=== PATIENT | male | born 2000 | race Caucasian/White ===

== ENCOUNTER 2022-12-28 12:06 | Emergency (ER) | payer OTHER, SELFPAY ==
[2022-12-28 12:07] VITALS: BP 127/85; PULSE 82; RESP 16; TEMP 36.8; O2SAT 100; BMI 27.8
--- NOTE | 2022-12-28 13:28 | EDS_ITS ---
HPI <ERIN Doherty - Last Filed: 12/28/22 15:27> History of Present Illness Chief Complaint: Meds Only Narrative Narrative: Patient presenting today after being bit by a raccoon on his right anterior lower leg on Saturday. 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 He tried to step on its head but missed and the raccoon bit his leg. This has never happened before. He went to urgent care on and they updated his tetanus vaccine and told him to follow-up with the health department. When he went to the health department today they encouraged him to come to the emergency department for treatment. He denies any fever, chills, signs of infection near the bite. Patient has never been bit by a raccoon before or received any treatment for rabies prevention. [facility] <ERIN Doherty - Last Filed: 12/28/22 15:27> [facility] Medical History (Updated 12/28/22 @ 14:28 by ERIN Doherty) Bitten by raccoon, initial encounter Home Medications amoxicillin 500 mg-potassium clavulanate 125 mg tablet 1 tab PO BID #10 tabs 12/27/22 [Rx Last Taken Unknown] Allergy/AdvReac Type Severity Reaction Status Date / Time No Known Allergies Allergy Verified 12/28/22 12:09 Social History Smoking Status: Never smoker alcohol intake: never ROS <ERIN Doherty - Last Filed: 12/28/22 15:27> ROS ED Constitutional Constitutional ED: Denies chills or fever(s) Eyes Eyes: Denies change in vision Cardiovascular Cardiovascular: Denies chest pain Respiratory/Chest Respiratory/Chest: Denies cough or dyspnea Gastrointestinal Gastrointestinal: Denies abdominal pain, nausea or vomiting Musculoskeletal Musculoskeletal: Denies arthralgias or myalgias Integumentary Denies abscess, Abrasions or rash Neurologic Neurologic: Denies paresthesias or weakness EXAM <ERIN Doherty - Last Filed: 12/28/22 15:27> Physical Exam Const Vital Signs: 12/28/22 12:07 Temperature 98.2 F Temperature Source Temporal Pulse Rate 82 Respiratory Rate 16 Blood Pressure 127/85 H Blood Pressure Mean 99 Pulse Ox 100 Oxygen Delivery Method Room Air Positive well nourished, well developed and no apparent distress General Appearance ED: well developed HEENT Reports normocephalic and head/scalp atraumatic Mouth ED: Yes moist mucous membranes normal Eyes PERRL and EOMs intact bilaterally Neck full ROM and supple Chest Wall inspection of chest normal Resp normal respiratory effort and clear to auscultation bilaterally Cardio regular rate and regular rhythm GI soft to palpation, non-tender, non-distended and no masses Back/Spine normal ROM and normal to inspection Extremity normal to inspection and full ROM Extremity Narrative: 1 cm linear wound that has scabbed over to the ventral aspect of patient's right lower leg. There is no surrounding erythema, edema, or purulent discharge. Neuro oriented x3, CN's II-XII intact bilaterally, moves all extremities, no focal motor deficits and no sensory deficits noted Sensorium / Orientation: awake and alert Psych mental status grossly normal and thought process normal Skin Skin Narrative: See above. <Dr. Jeni Rosa, - Last Filed: 12/28/22 17:39> Physical Exam Const Vital Signs: 12/28/22 12:07 Temperature 98.2 F Temperature Source Temporal Pulse Rate 82 Respiratory Rate 16 Blood Pressure 127/85 H Blood Pressure Mean 99 Pulse Ox 100 Oxygen Delivery Method Room Air MDM <ERIN Doherty - Last Filed: 12/28/22 15:27> [facility] Narrative Medical decision making narrative: Patient presenting today after being bit by a raccoon on his right lower extremity Saturday. He is well-appearing and in no acute distress. Vital signs are stable and he is afebrile. He has a small linear wound that is about 1 cm to his right lower leg that has scabbed over and is not actively bleeding. There is no surrounding cellulitis. Patient has been given 1800 units of rabies immunoglobulin. I cleansed the wound with an alcohol wipe and injected 2 cc of this around/ into the bite wound and the nurse injected the rest into patient's arm. Patient was also given the rabies vaccine. His tetanus is up-to-date. He has been given a schedule to return to have the series completed. He will be discharged home in stable condition and is comfortable with plan. <Dr. Jeni Rosa, DO - Last Filed: 12/28/22 17:39> [facility] Treatment and Re-Evaluation :: I have personally performed a face to face assessment of the patient and have reviewed the JAGDISH Note. I performed a substantive portion of the visit including all aspects of the following. My baker findings include: History is patient is 22-year-old male with no significant past medical history, up-to-date on tetanus presenting for rabies prophylaxis after raccoon bite to his right serrano. This occurred 2 days ago. 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 He was chasing through a field when he stepped on the back of it and the raccoon turned around and bit him on the shoe and did managed by him through his pants on his right serrano. He followed up with the health department today who recommend he come to the ER for rabies prophylaxis. He is never received this before. He does have an active bite he will receive immunoglobulin as well as of the vaccine. Patient is agreeable with this. Immunoglobulin is administered around the bites by Latia KHAN. Patient counseled return precautions. He verbalizes good understand this plan. Discharged home in stable condition. Other additions or changes: [None] Discharge Plan Triage Chief Complaint: Meds Only ED Midlevel Provider: Latia Rick ED Provider: Jeni Rosa Dx/Rx/DC Orders Clinical Impression: Bitten by raccoon, initial encounter Prescriptions: No Action amoxicillin-pot clavulanate 500-125 mg tablet 1 tab PO BID Qty: 10 0RF Primary Care Provider: Care Physician,No Primary Referrals: Care Physician,No Primary [Primary Care Provider] - Activity Restrictions/Additional Instructions: Please follow-up according to the schedule you were given. Return for any signs of infection. Disposition Disposition: Home, Self Care Discharge Date/Time: 12/28/22 14:50
[2022-12-28] MEDS: Rabies Immune Globulin/PF 300 UNIT/ML, 5 ML VIAL 1500 UNIT IM (14:17)
[2022-12-28] MEDS: Rabies Immune Globulin/PF 300 UNIT/ML, 1 ML VIAL IM (14:17)
[2022-12-28] MEDS: Rabies Vaccine,Human Diploid 2.5 UNITS Vial IM (14:18)
[2022-12-28 14:28] VITALS: BMI 27.8
== END 2022-12-28 14:50 | disposition home or self-care (01) ==
PROVIDERS: Emergency Provider Emergency Medicine; Visit Provider Emergency Medicine
DX: S81.851A Open bite, right lower leg, initial encounter (principal); W55.51XA Bitten by raccoon, initial encounter; Y92.73 Farm field as the place of occurrence of the external cause
CPT/HCPCS: 90675; 96372; 99282; 90375

== ENCOUNTER 2022-12-30 18:41 | Outpatient (CLI) | payer OTHER, BC, SELFPAY ==
[2022-12-30] MEDS: Rabies Vaccine,Human Diploid 2.5 UNITS Vial IM (19:01)
== END 2022-12-30 19:27 | disposition home or self-care (01) ==
LOC: ED 19:27
DX: Z23 Encounter for immunization (principal)
CPT/HCPCS: 90675; 96372

== ENCOUNTER 2023-01-07 09:13 | Outpatient (CLI) | payer OTHER, BC, SELFPAY ==
[2023-01-07 09:13] VITALS: BP 126/78; PULSE 78; RESP 16; TEMP 36.6; O2SAT 99; BMI 27.8
[2023-01-07] MEDS: Rabies Vaccine,Human Diploid 2.5 UNITS Vial IM (09:26)
--- NOTE | 2023-01-07 09:27 | EX.ED.DYSGE1 ---
HPI History of Present Illness Chief Complaint: Meds Only [facility] Medical History (Updated 12/28/22 @ 14:28 by ERIN Doherty) Bitten by tunde, initial encounter Home Medications amoxicillin 500 mg-potassium clavulanate 125 mg tablet 1 tab PO BID #10 tabs 12/27/22 [Rx Last Taken Unknown] Allergy/AdvReac Type Severity Reaction Status Date / Time No Known Allergies Allergy Verified 01/07/23 09:13 Social History Smoking Status: Never smoker alcohol intake: never EXAM Physical Exam Const Vital Signs: 01/07/23 09:13 Temperature 97.8 F Temperature Source Temporal Pulse Rate 78 Respiratory Rate 16 Blood Pressure 126/78 H Blood Pressure Mean 94 Pulse Ox 99 Oxygen Delivery Method Room Air [facility] MDM Narrative Medical decision making narrative: HISTORY OF PRESENT ILLNESS: REVIEW OF SYSTEMS: Pertinent positives: Pertinent negatives: PHYSICAL EXAM: Nursing triage notes reviewed, Vital signs reviewed Constitutional: please see mdm HENT: MMM Eyes: Pupils equal round and reactive to light, Extraocular muscles intact Neck: No stridor, no JVD, full neck ROM Lungs: Clear to auscultation, No wheezing or rales. No increased work of breathing, no conversational dyspnea, no accessory muscle use, no nasal flaring. No respiratory distress noted Heart: Regular rate and rhythm, No murmurs, No rubs and No gallops, 2+ distal pulses (radial, femoral, posterior tibial) in all extremities Abdomen: Soft, there is no tenderness, rigidity, rebound or guarding, no obvious peritoneal signs, no palpable pulsatile abdominal masses, no auscultated abdominal bruit : No CVAT Extremities: No edema Neuro: No focal neurological deficits, cranial nerves II through XII intact, 5/5 strength in all extremities. Intact sensation to light touch in all extremities, 2+ reflexes bilateral patella tendons. Normal gait. No ataxia. Skin: No rash or lesions noted MEDICAL DECISION MAKING: Chief Complaint: External records reviewed: Factors affecting care: Social determinants of health: History obtained from others: Consults: ALL IMAGES HAVE BEEN PERSONALLY REVIEWED AND INTERPRETED BY MYSELF. MDM Narrative: I considered the following differential diagnosis: Total critical care time today provided was at least minutes. This excludes seperately billable procedures. There was a high probability of clinically significant/life threatening deterioration in the patient's condition which required my urgent intervention. Shared decision making: I will have a discussion with the patient and or visitors regarding risk/benefits of further testing or admission. They will be made aware of of the risk/benefits inherent in this decision they will be given the opportunity to voice understanding. Discharge Plan Triage Chief Complaint: Meds Only ED Provider: Emre Jackman Dx/Rx/DC Orders Prescriptions: No Action amoxicillin-pot clavulanate 500-125 mg tablet 1 tab PO BID Qty: 10 0RF Primary Care Provider: Care Physician,No Primary Referrals: Care Physician,No Primary [Primary Care Provider] -
== END 2023-01-07 10:00 | disposition home or self-care (01) ==
LOC: ED 10:04
PROVIDERS: Visit Provider Emergency Medicine
DX: Z23 Encounter for immunization (principal)
CPT/HCPCS: 90675; 96372

== ENCOUNTER 2023-01-14 05:40 | Outpatient (CLI) | payer OTHER, BC, SELFPAY ==
[2023-01-14 05:41] VITALS: BP 122/67; PULSE 60; RESP 16; TEMP 36.4; O2SAT 99; BMI 29.0
[2023-01-14] MEDS: Rabies Vaccine,Human Diploid 2.5 UNITS Vial IM (06:09)
== END 2023-01-14 06:17 | disposition home or self-care (01) ==
LOC: ED 06:18
DX: Z23 Encounter for immunization (principal)
CPT/HCPCS: 90675; 96372